=== PATIENT | female | born 1965 | race Caucasian/White ===

== ENCOUNTER 2017-06-10 21:31 | Emergency (ER) | payer OTHER ==
[~2017-06-10] VITALS: Ht 165.1 cm; Wt 104.3 kg
--- NOTE | ~2017-06-10 | CT4 ---
[facility] A Service of [facility] & [facility] RADIOLOGY TEXT RESULTS PATIENT: MERNA THOMPSON LOCATION: SED : 67 UNIT #: [id number] AGE: [address]: Hayley Mckeon MD SEX: F ORDER DR: [id number] [address] [address] [id number] MR#: [id number] #: [id number] NAME: MERNA THOMPSON : 1965 SEX: F STUDY DATE/TIME: 06/10/2017 22:53 UNIT: SED ROOM: STUDY DESCRIPTION: CT Abd and Pelv Wo Cont Attending Physician: Hayley Mckeon M.D. Ordering Physician: Hayley Mckeon M.D. Primary Care Physician: Elio Giangmood [facility] IMAGING REPORT This report is preliminary unless electronic signature is present. EXAM CT scan of the abdomen and pelvis without contrast, 06/10/2017. HISTORY Vomiting, diarrhea, sharp abdominal pain for several days this week with increased white blood cell count, 12.9 today. Evaluate for obstructing renal or ureteral calculus. TECHNIQUE Spiral CT was performed through the abdomen and pelvis without oral or intravenous contrast administration using renal stone protocol. This CT exam was performed with one or more of the following radiation dose reduction techniques: automatic exposure control, adjustment of mA and/or kV according to patient size, and iterative reconstruction. FINDINGS ABDOMEN: There is no obstructing renal or ureteral calculus. There is fatty infiltration of the liver. The spleen, pancreas and adrenal glands are normal. The gallbladder is surgically absent. There is dilatation of the common bile duct to 1.2 cm. No obstructing mass or calculus is seen. Clinical correlation is recommended. PELVIS FINDINGS: There are postsurgical changes involving the cecum probably reflecting appendectomy. The gut, mesenteric and emily structures are normal. There is no free fluid in the abdomen or pelvis. The lung bases are normal. IMPRESSION 1. No obstructing renal or ureteral calculus. 2. Fatty infiltration of the liver. 3. Surgical absence of the gallbladder. There is postcholecystectomy dilatation of the common bile duct to 1.2 cm, but no obstructing mass or calculus is seen. Clinical correlation is recommended. [facility] A Service of [facility] & [facility] RADIOLOGY TEXT RESULTS PATIENT: MERNA THOMPSNO LOCATION: [facility] : 67 UNIT #: [id number] AGE: [address]: Hayley Mckeon MD SEX: F ORDER DR: Dictated by... Franc Fuller M.D. THIS IS AN ELECTRONICALLY VERIFIED REPORT Franc Fuller M.D. at 06/11/2017 2:17 PM KRT/lizzie TD: 06/11/2017 11:03 JOB #: [id number] MEDICAL IMAGING REPORT Page 1 of 1
[~2017-06-10 21:31] MED LIST: AMBIEN10 MG PO; ASPIRIN81 MG; ATARAX PO; BACTRIM DS TABL1 TA1 PO; CELEBREX PO; CLEOCIN PO; DAZIDOX10 MG PO; DEPAKOTE ER PO; DESYREL50 M1; DESYREL50 MG DOB; DESYREL50 MG PO; DICLOFENAC PO; DIVALPROEX SOD500 M1; DURAGESIC TOP; DURAGESIC100 MCG TD; DURAGESIC75 MCG TOP; EFFEXOR XR PO; FLEXERIL10 MG PO; HYDROCODON-ACE1 EAC5 PO; KLONOPIN1 MG PO; MACROBID100 MG PO; NEURONTIN PO; NORCO 7.5/325 T1 TAB PO; OXYCODONE HCL10 MG PO; PHENERGAN25 M1 PO; PHENERGAN25 MG PO; PRAVACHOL PO; PRED PAK PO; PREDNISONE; PROMETHAZINE HC25 MG PO; PYRIDIUM PO; SEROQUEL PO; SEROQUEL XR200 MG; SINGULAIR PO; TOPROL XL PO; TOPROL XL50 MG PO; VANCOMYCIN H1 G/VIAL IV; VICODIN 5/500 T1 TAB PO; ZANTAC150 MG PO; [UNRECOGNIZED DRUG - OTHER] IV
[2017-06-10 22:14] LABS: BASOPHIL# 0.1 X10e3 (0-0.3); BASOPHIL% 0.7 % (0-2.5); EOSINOPHIL# 0.2 X10e3 (0-0.7); EOSINOPHIL% 1.3 % (0.0-7.0); HEMATOCRIT 47.6 % (35.0-45.0); HEMOGLOBIN 16.1 gm/dL (12.0-16.0); LYMPHOCYTE# 2.5 X10e3 (1.0-3.5); LYMPHOCYTE% 19.2 % (17.0-45.0); MEAN CELL VOLUME 84.1 FL (83-96); MEAN CORPUSCULAR HEMOGLOBIN 28.4 PG (28-34); MEAN CORPUSCULAR HGB CONC 33.8 g/dL (30-36); MEAN PLATELET VOLUME 8.7 FL (6.5-11.5); MONOCYTE# 0.9 X10e3 (0-1.0); NEUTROPHIL# 9.3 X10e3 (1.5-7.1); NEUTROPHIL% 71.8 % (40-75); PLATELET COUNT 165 X10e3 (140-420); RED BLOOD COUNT 5.66 X10e (3.90-5.30); RED CELL DISTRIBUTION WIDTH 14.4 % (11.0-15.5); WHITE BLOOD COUNT 12.9 X10e3 (4.0-10.5)
[2017-06-10 22:17] LABS: DIFF IND NO; URINE SOURCE CLEAN CATCH
[2017-06-10 22:20] LABS: URINE APPEARANCE CLEAR; URINE BLOOD NEG (NEG); URINE COLOR DK YELLOW; URINE GLUCOSE NEG (NORM); URINE KETONE NEG (NEG); URINE LEUKOCYTE ESTERASE NEG (NEG); URINE NITRATE POS (NEG); URINE PH 5.5 (5-8); URINE PROTEIN TRACE (NEG); URINE UROBILINOGEN >=8.0 MG/DL (NORM)
[2017-06-10 22:21] LABS: MICRO INDICATED? YES; URINE BILIRUBIN POS (NEG)
[2017-06-10 22:27] LABS: CULTURE INDICATED? YES; URINE BACTERIA 1+ (NEG); URINE GRANULAR CAST 0-2 /[HPF]; URINE HYALINE CAST 0-2 /[HPF]; URINE RBC 0-2 /[HPF] (0-2); URINE SQUAMOUS EPITHELIAL CELL MODERATE /[HPF]
[2017-06-10 22:39] LABS: ALBUMIN SERUM 4.4 g/dL (3.5-5.0); BILIRUBIN, DIRECT 0.4 mg/dL (0.0-0.2); BILIRUBIN,INDIRECT 0.8 mg/dL (0.0-0.9); BILIRUBIN,TOTAL 1.2 mg/dL (0.2-2.0); BUN/CREATININE RATIO 23.84; CALCIUM SERUM 8.9 mg/dL (8.4-10.2); CREATININE SERUM 1.3 mg/dL (0.6-1.4); GLOM FILT RATE Estimated 47.8 mL/min (>60); POTASSIUM 3.6 mmol/L (3.5-5.1); PROTEIN TOTAL SERUM 7.9 g/dL (6.0-8.3)
== END 2017-06-10 23:27 | disposition home or self-care (01) ==
LOC: SED 21:31
PROVIDERS: Student in an Organized Health Care Education/Training Program
DX: T62.8X1A Toxic effect of other specified noxious substances eaten as food, accidental (unintentional), initial encounter (principal); R11.0 Nausea; R19.7 Diarrhea, unspecified; R10.9 Unspecified abdominal pain; K21.9 Gastro-esophageal reflux disease without esophagitis; I10 Essential (primary) hypertension; Z79.899 Other long term (current) drug therapy; Z79.82 Long term (current) use of aspirin; Z88.8 Allergy status to other drugs, medicaments and biological substances; Z88.6 Allergy status to analgesic agent; Z88.1 Allergy status to other antibiotic agents
CPT/HCPCS: 36415; 74176; 80048; 80076; 81003; 82150; 83690; 85025; 87086; 99284